=== PATIENT | male | born 1965 | race Caucasian/White ===

== ENCOUNTER 2023-10-01 07:35 | Outpatient (REF) | payer OTHER, SELFPAY ==
[2023-10-01 13:19] LABS: MANUAL DIFF FLAG NO
[2023-10-01 13:28] LABS: Basophils Percent Auto 0.4 % (0-2); Eosinophils Absolute Auto 0.1 X10*3/uL (0.0-0.4); Eosinophils Percent Auto 1.9 % (0-4); Hematocrit 42.9 % (42.0-52.0); Hemoglobin 14.5 g/dl (14.0-18.0); Imm Gran Abs Auto 0.02 X10*3/uL (0.00-0.03); Imm Gran Pct Auto 0.3 % (0.0-0.4); Lymphocytes Absolute Auto 2.2 X10*3/uL (1.2-4.9); Lymphocytes Percent Auto 30.8 % (20-40); Mean Corpuscular HGB Conc 33.8 g/dl (31.0-36.0); Mean Corpuscular Hemoglobin 31.3 pg (27.0-33.0); Mean Corpuscular Volume 92.7 fL (80.0-98.0); Mean Platelet Volume 11.5 fL (9.4-12.4); Monocytes Absolute Auto 0.7 X10*3/uL (0.1-1.2); Monocytes Percent Auto 9.3 % (2-11); Neutrophils Absolute Auto 4.2 x10*3/uL (2.0-8.3); Neutrophils Percent Auto 57.3 % (45-73); Platelet Count 302 X10*3/uL (160-400); Red Blood Count 4.63 X10*6/uL (4.60-5.80); Red Cell Distribution Width 12.7 % (11.0-16.0); White Blood Count 7.2 X10*3/uL (4.8-10.8)
[2023-10-01 14:10] LABS: Erythrocyte Sedimentation Rate 6 MM/HR (0-15)
[2023-10-01 14:15] LABS: Alanine Aminotransferase 12 U/L (0-40); Albumin Level 4.1 g/dL (3.5-5.0); Alkaline Phosphatase 77 U/L (39-117); Anion Gap 13 (12-20); Aspartate Amino Transferase 23 U/L (5-37); Bilirubin Total 0.5 mg/dL (0.0-1.0); Blood Urea Nitrogen 18 mg/dL (9-16); C Reactive Protein 0.38 mg/dL (< or = 0.50); Calcium 9.8 mg/dL (8.4-10.2); Carbon Dioxide 26 mmol/L (22-29); Chloride 104 mmol/L (96-108); Estimated Glomerular Filt Rate > 60; Glucose Random 80 mg/dL (60-115); Potassium 4.1 mmol/L (3.3-5.1); Sodium 139 mmol/L (135-145); Uric Acid 5.8 mg/dL (3.4-7.0)
[2023-10-01 14:19] LABS: Free T4 (Free Thyroxine) 1.12 ng/dL (0.71-1.85); Thyroid Stimulating Hormone 1.73 uIU/mL (0.32-4.0)
[2023-10-01 16:09] LABS: Parathyroid Hormone Intact 41.8 pg/mL (8.7-77.1)
[2023-10-01 16:18] LABS: Rheumatoid Factor < 13.0 IU/mL (<15.0)
[2023-10-01 16:45] LABS: Folate 5.8 ng/mL (> or = 4.0); Vitamin B12 < 148 pg/mL (200-900)
[2023-10-02 22:18] LABS: Lyme Abs Screen <0.90 index
[2023-10-04 11:53] LABS: A phagocytophilum IgG <1:64 (<1:64); A phagocytophilum IgM <1:20 (<1:20)
[2023-10-04 18:29] LABS: Anti Nuclear Antibody Screen NEGATIVE (NEGATIVE)
[2023-10-06 11:48] LABS: Babesia IgG <1:64 titer (<1:64); Babesia IgM <1:20 titer (<1:20)
== END 2023-10-01 07:36 | disposition home or self-care (01) ==
LOC: HO.MANLDS 07:35
PROVIDERS: Visit Provider Physician Assistant
DX: M25.512 Pain in left shoulder (principal)
CPT/HCPCS: 36415; 80053; 82607; 82746; 83970; 84439; 84443; 84550; 85025; 85652; 86038; 86140; 86431; 86617; 86618; 86666; 86753

== ENCOUNTER 2023-11-26 07:39 | Outpatient (REF) | payer OTHER, SELFPAY ==
[2023-11-26 14:12] LABS: Folate 6.6 ng/mL (> or = 4.0); Vitamin B12 1540 pg/mL (200-900)
== END 2023-11-26 07:40 | disposition home or self-care (01) ==
LOC: HO.MANLDS 07:39
PROVIDERS: Visit Provider Physician Assistant
DX: E53.8 Deficiency of other specified B group vitamins (principal)
CPT/HCPCS: 36415; 82607; 82746